=== PATIENT | female | born 1995 | race African-American/Black ===

== ENCOUNTER 2018-01-08 11:49 | Emergency (ER) | payer OTHER ==
[~2018-01-08] VITALS: Ht 160 cm; Wt 46.3 kg
[2018-01-08 11:53] VITALS: BP 112/64
== END 2018-01-08 13:22 | disposition home or self-care (01) ==
LOC: ER 11:51
DX: B97.89 Other viral agents as the cause of diseases classified elsewhere (principal); J02.8 Acute pharyngitis due to other specified organisms
CPT/HCPCS: 87070; 87880; 99284; A4606; Z7610; 86403-TC

== ENCOUNTER 2018-02-09 11:47 | Emergency (ER) | payer OTHER ==
[~2018-02-09] VITALS: Ht 149.9 cm; Wt 49.9 kg
[2018-02-09] MEDS ORDERED: ONDANSETRON 4 MG TAB.RAPDIS ONE (11:57)
[2018-02-09] MEDS ORDERED: IBUPROFEN 600 MG TABLET PO ONE ×2 (11:57→12:00)
[2018-02-09] MEDS ORDERED: ONDANSETRON 4 MG TAB.RAPDIS SL ONE (12:00)
--- NOTE | 2018-02-09 12:00 | NUR ---
[id number] FROM WORK C/O ABD PAIN, 1ST DAY OF MENSTRUAL PERIOD. NAD NOTED, VSS, RESP EVEN AND UNLABORED. MONITOR FOR MD AKERS.
[2018-02-09 12:58] LABS: APPEARANCE,URINE Clear (CLEAR); BILIRUBIN,URINE Negative (NEGATIVE); BLOOD, URINE Small Ery/uL (NEGATIVE); COLOR,URINE Yellow (YELLOW); KETONES,URINE Negative (NEGATIVE); LEUKOCYTE ESTERASE ,URINE Negative (NEGATIVE); NITRITE, URINE Negative (NEGATIVE); PROTEIN,URINE Trace mg/dl (NEGATIVE); UGLUCOSE Negative (NEGATIVE); UROBILINOGEN,URINE 0.2 EU/dL (0.2)
[2018-02-09 13:00] LABS: PH,URINE >9.0 (5.0-8.0)
[2018-02-09 13:08] LABS: BACTERIA,URINE Rare /HPF (None Seen); SQUAMOUS EPITHELIAL CELL,UR Few /HPF (None Seen)
[2018-02-09 14:19] VITALS: BP 129/75
--- NOTE | 2018-02-09 14:22 | NUR ---
Patient discharged to home in stable condition. Written and verbal after care instructions given. Patient verbalizes understanding of instruction. Prescription given.
== END 2018-02-09 14:31 | disposition home or self-care (01) ==
LOC: ER 11:48
DX: N94.6 Dysmenorrhea, unspecified (principal)
CPT/HCPCS: 76856-TC; 81000-TC; 84703-TC; A4606; Q0162; Z7610

== ENCOUNTER 2018-04-13 18:08 | Emergency (ER) | payer OTHER ==
[~2018-04-13] VITALS: Ht 160 cm; Wt 45.8 kg
[2018-04-13 19:22] VITALS: BP 102/67
--- NOTE | 2018-04-13 20:12 | NUR ---
ASSUMED D/C CARE ONLY AT THIS TIME. Patient discharged to home in stable condition. Written and verbal after care instructions given. Patient verbalizes understanding of instruction. Ambulatory with a steady gait
== END 2018-04-13 20:13 | disposition home or self-care (01) ==
LOC: ER 18:10
DX: K04.7 Periapical abscess without sinus (principal)
CPT/HCPCS: 99281; A4606; Z7610; Z7502